=== PATIENT | male | born 1995 | race Caucasian/White ===

== ENCOUNTER 2017-03-30 21:53 | Emergency (ER) | payer OTHER ==
[2017-03-30] MEDS ORDERED: HYDROcodone/Acetaminophen 10/325 mg Tablet ONE (22:13)
[2017-03-30] MEDS ORDERED: Naproxen 500 MG TAB ONE (22:13)
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
== END 2017-03-30 23:49 | disposition home or self-care (01) ==
LOC: MADERS 21:53
DX: S30.0XXA Contusion of lower back and pelvis, initial encounter (principal); V49.9XXA Car occupant (driver) (passenger) injured in unspecified traffic accident, initial encounter
CPT/HCPCS: 72131